=== PATIENT | female | born 1990 | race Caucasian/White ===

== ENCOUNTER → 2024-09-17 08:01 | Outpatient (REF) | payer BC, SELFPAY | LOC: REG 08:01 | PROVIDERS: ATTENDING PHYSICIAN Obstetrics & Gynecology; FAMILY PHYSICIAN Nurse Practitioner | DX: O20.9 Hemorrhage in early pregnancy, unspecified (principal) | CPT/HCPCS: 36415; 84443; 84702; 86850; 86900; 86901 ==

== ENCOUNTER → 2024-10-03 14:16 | Outpatient (REF) | payer BC, SELFPAY ==
[2024-10-03 15:34] LABS: HCG, Serum Qualitative Screen Negative
== END ==
LOC: REG 14:16
PROVIDERS: ATTENDING PHYSICIAN Obstetrics & Gynecology; FAMILY PHYSICIAN Nurse Practitioner
DX: O20.0 Threatened abortion (principal)
CPT/HCPCS: 36415; 84703